=== PATIENT | female | born 1965 | race African-American/Black ===

== ENCOUNTER 2018-03-18 04:20 | Inpatient (IN) | payer OTHER ==
[~2018-03-18] VITALS: Ht 162.6 cm; Wt 83.7 kg
[2018-03-18] MEDS ORDERED: MAGNESIUM 2 G PREMIX 50 ML IV STA (04:32)
[2018-03-18] MEDS ORDERED: METHYLPREDNISOLONE SOD SUCC 125 MG/2 ML VIAL IV STA (04:32)
[2018-03-18] MEDS ORDERED: ALBUTEROL (0.083%) 2.5MG/3ML NEB HHN STA (04:32)
[2018-03-18] MEDS ORDERED: IPRATROPIUM BROMIDE (0.02%) 0.5MG/2.5ML NEB HHN STA (04:32)
[2018-03-18 05:25] LABS: BASOPHILS % 0.5 % (0.0-2.0); EOSINOPHILS % 1.4 % (0.0-5.0); HEMATOCRIT. 43.5 % (36.0-48.0); HEMOGLOBIN. 14.7 g/dL (12.0-16.0); LYMPHOCYTES % 22.2 % (20.0-50.0); MEAN CORPUSCULAR HEMOGLOBIN 28.6 pg (28.0-32.0); MEAN CORPUSCULAR VOLUME 84.7 fL (81.0-99.0); MEAN PLATELET VOLUME 8.4 fl (7.4-10.4); MONOCYTES % 6.4 % (2.0-8.0); NEUTROPHILS % 69.5 % (40.0-76.0); PLATELET 255 x1000/uL (130-400); RED BLOOD CELL COUNT 5.14 mill/uL (4.2-5.4); RED CELL DISTRIBUTION WIDTH 13.6 % (11.6-14.6)
[2018-03-18] MEDS ORDERED: FUROSEMIDE 20MG/2ML VIAL IVP ONE (05:30)
[2018-03-18 05:32] LABS: CHLORIDE 102 mEq/L (98-107)
[2018-03-18 05:36] LABS: PARTIAL THROMBOPLASTIN TIME 30.9 sec (23.4-31.0); PROTHROMBIN TIME 10.5 sec (9.1-11.1)
[2018-03-18 05:40] LABS: ETHANOL BLOOD < 10 mg/dL
[2018-03-18 06:31] LABS: BG BASE EXCESS -0.8 mmol/L (-2.0-2.0); BG BILEVEL POS AIRWAY PRESSURE 15/5; BG CARBOXYHEMOGLOBIN 2.2 % (0.5-1.5); BG DEOXYHEMOGLOBIN 6.6 % (0.0-5.0); BG FRACTION INSPIRED OXYGEN 40; BG HCO3 ACT 24.2 mmol/L (22.0-26.0); BG METHEMOGLOBIN 0.2 % (0.0-1.5); BG OXYGEN SATURATION 93.2 % (92.0-98.5); BG PCO2 41.2 mmHg (35.0-45.0); BG PH 7.386 (7.350-7.450); BG PO2 65.3 mmHg (75.0-100.0); BG SAMPLE SITE RIGHT RADIAL; BG TOTAL HEMOGLOBIN 14.8 g/dL (12.0-18.0); BG VENT MODE MASK - BIPAP
[2018-03-18 09:13] LABS: CLARITY URINE CLEAR (CLEAR); COLOR URINE YELLOW (YELLOW); KETONES URINE NEGATIVE (NEGATIVE); LEUKOCYTE ESTERASE URINE TRACE (NEGATIVE); NITRITE URINE POSITIVE (NEGATIVE); OCCULT BLOOD URINE NEGATIVE (NEGATIVE); PH URINE 5.5 (4.5-8.0); PROTEIN URINE NEGATIVE (NEGATIVE); UROBILINOGEN URINE 0.2 E.U./dL (0.2-1.0)
[2018-03-18 10:51] LABS: *AMPHETAMINES SCREEN URINE PRESUMTIVE POSITIVE (NEGATIVE); *BARBITURATES SCREEN URINE NEGATIVE (NEGATIVE)
[2018-03-18 10:52] LABS: *BENZODIAZEPINES SCREEN URINE NEGATIVE (NEGATIVE); *COCAINE SCREEN URINE PRESUMTIVE POSITIVE (NEGATIVE); CANNABINOID URINE SCREEN NEGATIVE (NEGATIVE); METHADONE URINE SCREEN NEGATIVE (NEGATIVE); OPIATES URINE SCREEN NEGATIVE (NEGATIVE); PHENCYCLIDINE URINE SCREEN NEGATIVE (NEGATIVE)
[2018-03-18 14:00] VITALS: BP 122/79
[2018-03-18 15:19] VITALS: BP 122/79
[2018-03-18 16:00] VITALS: BP 136/76
[2018-03-18] MEDS ORDERED: INFLUENZA VIRUS VACCINE(AFLURIA) 0.5ML SYR IM ONE (17:15)
[2018-03-18] MEDS ORDERED: PNEUMOCOCCAL 23-VAL P-SAC VAC 0.5 ML IM ONE (17:15)
[2018-03-18] MEDS ORDERED: ONDANSETRON HCL 4MG/2ML INJ IV PRN (17:45)
[2018-03-18] MEDS ORDERED: IPRATROPIUM/ALBUTEROL 0.5-3(2.5)MG/3ML NEB INH PRN (17:45)
[2018-03-18] MEDS ORDERED: MAGNESIUM/ALUMINUM HYDROXIDE/SIMETHICONE 30ML UDC PO PRN (17:45)
[2018-03-18] MEDS ORDERED: LORAZEPAM 2MG/ML CPJ IV PRN (17:45)
[2018-03-18 17:57] VITALS: BP 117/77
[2018-03-18] MEDS ORDERED: METHYLPREDNISOLONE SOD SUCC 125 MG/2 ML VIAL IV SCH (18:00)
[2018-03-18] MEDS ORDERED: IPRATROPIUM/ALBUTEROL 0.5-3(2.5)MG/3ML NEB HHN SCH (20:00)
[2018-03-18] MEDS ORDERED: ARIPIPRAZOLE 2MG TABLET PO SCH (21:00)
[2018-03-18] MEDS: LEVOFLOXACIN 500MG PREMIX 100 ML IV SCH (21:03)
[2018-03-18] MEDS: FAMOTIDINE 20MG TABLET PO SCH (21:03)
[2018-03-18] MEDS: SODIUM CHLORIDE 0.9% INJ 3ML FLUSH IVF SCH (21:04)
[2018-03-18] MEDS: GUAIFENESIN 600MG ER TABLET PO SCH (21:07)
[2018-03-18 22:00] VITALS: BP 133/78
[2018-03-19] VITALS (11 sets, daily range): BP systolic 105–151; BP diastolic 53–93
[2018-03-19] MEDS: ARIPIPRAZOLE 2MG TABLET PO SCH ×2 (00:04→09:09)
[2018-03-19] MEDS: ACETAMINOPHEN 325MG TABLET PO PRN ×3 (00:13→18:02)
[2018-03-19] MEDS: IPRATROPIUM/ALBUTEROL 0.5-3(2.5)MG/3ML NEB HHN SCH ×4 (01:59→20:05)
[2018-03-19] MEDS: BUDESONIDE 0.5MG/2ML NEB HHN SCH ×3 (02:00→20:09)
[2018-03-19] MEDS: SODIUM CHLORIDE 0.9% INJ 3ML FLUSH IVF SCH ×3 (06:00→20:10)
[2018-03-19 06:38] LABS: HEMATOCRIT. 41.7 % (36.0-48.0); HEMOGLOBIN. 13.7 g/dL (12.0-16.0); MEAN CORPUSCULAR HEMOGLOBIN 27.9 pg (28.0-32.0); MEAN CORPUSCULAR VOLUME 84.9 fL (81.0-99.0); MEAN PLATELET VOLUME 8.6 fl (7.4-10.4); PLATELET 232 x1000/uL (130-400); RED BLOOD CELL COUNT 4.91 mill/uL (4.2-5.4); RED CELL DISTRIBUTION WIDTH 13.5 % (11.6-14.6)
[2018-03-19 06:48] LABS: CHLORIDE 103 mEq/L (98-107)
[2018-03-19] MEDS: METHYLPREDNISOLONE SOD SUCC 40 MG/ML VIAL IV SCH ×2 (09:04→16:55)
[2018-03-19] MEDS: GUAIFENESIN 600MG ER TABLET PO SCH ×2 (09:05→20:10)
[2018-03-19] MEDS: FAMOTIDINE 20MG TABLET PO SCH ×2 (09:05→20:10)
[2018-03-19] MEDS: NICOTINE 14MG PATCH TD SCH (09:10)
[2018-03-19 16:18] LABS: PLATELET ESTIMATE NORMAL
[2018-03-19] MEDS: GUAIFENESIN 200MG/10ML SUGAR FREE UDC PO PRN (18:02)
[2018-03-19] MEDS: LEVOFLOXACIN 500MG PREMIX 100 ML IV SCH (20:10)
[2018-03-20] VITALS (7 sets, daily range): BP systolic 108–136; BP diastolic 54–78
[2018-03-20] MEDS: IPRATROPIUM/ALBUTEROL 0.5-3(2.5)MG/3ML NEB HHN SCH ×3 (00:14→08:37)
[2018-03-20] MEDS: ACETAMINOPHEN 325MG TABLET PO PRN (03:43)
[2018-03-20] MEDS: SODIUM CHLORIDE 0.9% INJ 3ML FLUSH IVF SCH ×2 (06:00→14:51)
[2018-03-20] MEDS: METHYLPREDNISOLONE SOD SUCC 40 MG/ML VIAL IV SCH (08:35)
[2018-03-20] MEDS: BUDESONIDE 0.5MG/2ML NEB HHN SCH (08:36)
[2018-03-20] MEDS: ARIPIPRAZOLE 2MG TABLET PO SCH (08:40)
[2018-03-20] MEDS: FAMOTIDINE 20MG TABLET PO SCH (08:40)
[2018-03-20] MEDS: GUAIFENESIN 200MG/10ML SUGAR FREE UDC PO PRN (08:40)
[2018-03-20] MEDS: GUAIFENESIN 600MG ER TABLET PO SCH (08:40)
[2018-03-20] MEDS: NICOTINE 14MG PATCH TD SCH (08:42)
[2018-03-20] MEDS ORDERED: ALBU90AE INH (13:34)
[2018-03-20] MEDS ORDERED: LEVO500T2 MT (13:38)
[2018-03-20] MEDS ORDERED: LEVO250T2 MT (13:38)
[2018-03-20] MEDS ORDERED: PRED10TA23 MT (13:39)
[2018-03-20] MEDS ORDERED: ARIP2TAB3 MT (13:41)
[2018-03-20] MEDS ORDERED: GUAI10SY2 MT (13:41)
[2018-03-20] MEDS ORDERED: INFLUENZA VIRUS VACCINE(AFLURIA) 0.5ML SYR IM ONE (15:15)
[2018-03-21] MEDS ORDERED: PREDNISONE 20MG TABLET PO SCH (09:00)
[2018-03-21 14:11] LABS: HIV SCREEN 4G Non Reactive (Non Reactive)
== END 2018-03-20 18:30 | disposition home or self-care (01) | DRG 871 ==
LOC: ER 04:39 → 5EST 05:12 → EDBEDREQ 05:18 → EDBEDREQTM 05:18 → ENRESERV 12:05
PROVIDERS: ADMIT Internal Medicine; ATTEND Internal Medicine
PROC: 5A09357 Assistance with Respiratory Ventilation, Less than 24 Consecutive Hours, Continuous Positive Airway Pressure (ICD-10-PCS; principal; 2018-03-18)
DX: A41.9 Sepsis, unspecified organism (principal); J96.01 Acute respiratory failure with hypoxia; J68.0 Bronchitis and pneumonitis due to chemicals, gases, fumes and vapors; N39.0 Urinary tract infection, site not specified; J06.9 Acute upper respiratory infection, unspecified; F14.10 Cocaine abuse, uncomplicated; T38.0X5A Adverse effect of glucocorticoids and synthetic analogues, initial encounter; J44.9 Chronic obstructive pulmonary disease, unspecified; B96.20 Unspecified Escherichia coli [E. coli] as the cause of diseases classified elsewhere; F31.9 Bipolar disorder, unspecified; F17.210 Nicotine dependence, cigarettes, uncomplicated; I10 Essential (primary) hypertension; J20.9 Acute bronchitis, unspecified; F15.10 Other stimulant abuse, uncomplicated; Z80.0 Family history of malignant neoplasm of digestive organs; Y92.89 Other specified places as the place of occurrence of the external cause; Z71.6 Tobacco abuse counseling
CPT/HCPCS: 36415; 36600; 71045; 78580; 80048; 80305; 82375; 82805; 83605; 83735; 83880; 84484; 87077; 87186; 87389; 87804; 93005; 93306; 93970; 94640; 94660; 96365; 96366; 96375; 97162; 99291; G0482; J1940; J1956; J2060; J2920; J2930; J3475; J7611; J7620; J7626

== ENCOUNTER 2018-03-23 02:08 | Inpatient (IN) | payer OTHER ==
[2018-03-23] VITALS (7 sets, daily range): BP systolic 118–163; BP diastolic 29–117
[~2018-03-23] VITALS: Ht 157.5 cm; Wt 75.4 kg
[~2018-03-23 02:08] MED LIST: ALBU90AE INH; ARIP2TAB3 MT; GUAI10SY2 MT; LEVO250T2 MT; LEVO500T2 MT; PRED10TA23 MT
[2018-03-23 03:13] LABS: BASOPHILS % 0.3 % (0.0-2.0); EOSINOPHILS % 0.4 % (0.0-5.0); HEMATOCRIT. 41.3 % (36.0-48.0); LYMPHOCYTES % 12.2 % (20.0-50.0); MEAN CORPUSCULAR HEMOGLOBIN 28.4 pg (28.0-32.0); MEAN CORPUSCULAR VOLUME 83.4 fL (81.0-99.0); MEAN PLATELET VOLUME 8.2 fl (7.4-10.4); MONOCYTES % 4.5 % (2.0-8.0); NEUTROPHILS % 82.6 % (40.0-76.0); PLATELET 303 x1000/uL (130-400); RED BLOOD CELL COUNT 4.95 mill/uL (4.2-5.4); RED CELL DISTRIBUTION WIDTH 13.6 % (11.6-14.6)
[2018-03-23 03:24] LABS: CHLORIDE 100 mEq/L (98-107)
[2018-03-23] MEDS ORDERED: ACETAMINOPHEN 325MG TABLET PO NR (03:33)
[2018-03-23] MEDS ORDERED: KETOROLAC 15MG/ML VIAL IV NR (03:33)
[2018-03-23] MEDS ORDERED: SODIUM CHLORIDE 0.9% 2,160 ML IV NR (03:45)
[2018-03-23] MEDS ORDERED: SODIUM CHLORIDE 0.9% 1000ML BAG (SEPSIS BOLUS) IV ONE (03:45)
[2018-03-23] MEDS ORDERED: IPRATROPIUM BROMIDE (0.02%) 0.5MG/2.5ML NEB HHN STA (04:29)
[2018-03-23] MEDS ORDERED: METHYLPREDNISOLONE SOD SUCC 125 MG/2 ML VIAL IV STA (04:29)
[2018-03-23] MEDS ORDERED: ALBUTEROL (0.083%) 2.5MG/3ML NEB HHN STA (04:29)
[2018-03-23] MEDS ORDERED: MAGNESIUM 2 G PREMIX 50 ML IV ONE (04:30)
[2018-03-23] MEDS ORDERED: LEVOFLOXACIN 750MG PREMIX 150 ML IV ONE (04:30)
[2018-03-23 09:54] LABS: CLARITY URINE CLEAR (CLEAR); COLOR URINE YELLOW (YELLOW); KETONES URINE NEGATIVE (NEGATIVE); LEUKOCYTE ESTERASE URINE NEGATIVE (NEGATIVE); NITRITE URINE NEGATIVE (NEGATIVE); OCCULT BLOOD URINE NEGATIVE (NEGATIVE); PROTEIN URINE NEGATIVE (NEGATIVE); SPECIFIC GRAVITY URINE 1.004 (1.005-1.030); UROBILINOGEN URINE 0.2 E.U./dL (0.2-1.0)
[2018-03-23] MEDS ORDERED: DOCUSATE SODIUM 100MG CAPSULE PO PRN (11:15)
[2018-03-23] MEDS ORDERED: CLONIDINE 0.1MG TABLET PO PRN (11:15)
[2018-03-23] MEDS ORDERED: ONDANSETRON HCL 4MG/2ML INJ IV PRN (11:15)
[2018-03-23] MEDS ORDERED: NITROGLYCERIN 0.4MG TABLET SL SL PRN (11:15)
[2018-03-23] MEDS ORDERED: IPRATROPIUM/ALBUTEROL 0.5-3(2.5)MG/3ML NEB INH PRN (11:15)
[2018-03-23] MEDS ORDERED: MAGNESIUM/ALUMINUM HYDROXIDE/SIMETHICONE 30ML UDC PO PRN (11:15)
[2018-03-23 11:31] LABS: *AMPHETAMINES SCREEN URINE NEGATIVE (NEGATIVE); *BARBITURATES SCREEN URINE NEGATIVE (NEGATIVE); *BENZODIAZEPINES SCREEN URINE NEGATIVE (NEGATIVE); *COCAINE SCREEN URINE PRESUMTIVE POSITIVE (NEGATIVE); CANNABINOID URINE SCREEN NEGATIVE (NEGATIVE)
[2018-03-23 11:32] LABS: METHADONE URINE SCREEN NEGATIVE (NEGATIVE); OPIATES URINE SCREEN NEGATIVE (NEGATIVE); PHENCYCLIDINE URINE SCREEN NEGATIVE (NEGATIVE)
[2018-03-23] MEDS: ASPIRIN 325MG EC TABLET PO SCH (14:42)
[2018-03-23] MEDS: GUAIFENESIN 200MG/10ML SUGAR FREE UDC PO PRN ×2 (14:42→21:51)
[2018-03-23] MEDS: ACETAMINOPHEN 325MG TABLET PO PRN ×2 (14:42→21:44)
[2018-03-23] MEDS: CEFTRIAXONE 1 G PREMIX 50 ML IV SCH (14:43)
[2018-03-23] MEDS: ENOXAPARIN 40MG/0.4ML SYR SUBCUT SCH (15:33)
[2018-03-23 16:57] LABS: CREATINE KINASE 393 IU/L (26-192); CREATINE KINASE MB FRACTION < 1.0 ng/mL (0.5-3.6)
[2018-03-23] MEDS ORDERED: ASCORBIC ACID 500 MG TABLET PO SCH (21:00)
[2018-03-23] MEDS: FAMOTIDINE 20MG TABLET PO SCH (21:44)
[2018-03-23] MEDS: ASCORBIC ACID 500 MG TABLET PO SCH (21:44)
[2018-03-23] MEDS: ZOLPIDEM TARTRATE 5MG TABLET PO PRN (23:21)
[2018-03-23 23:33] LABS: CREATINE KINASE 287 IU/L (26-192); CREATINE KINASE MB FRACTION < 1.0 ng/mL (0.5-3.6)
[2018-03-24] VITALS (12 sets, daily range): BP systolic 108–154; BP diastolic 31–84
[2018-03-24] MEDS: LEVOFLOXACIN 500MG PREMIX 100 ML IV SCH (07:06)
[2018-03-24] MEDS: ASPIRIN 325MG EC TABLET PO SCH (08:45)
[2018-03-24] MEDS: ZINC SULFATE 220 MG ( 50 ) CAPSULE PO SCH (08:46)
[2018-03-24] MEDS: FAMOTIDINE 20MG TABLET PO SCH ×2 (08:46→21:39)
[2018-03-24] MEDS: ASCORBIC ACID 500 MG TABLET PO SCH ×2 (08:46→21:39)
[2018-03-24] MEDS: ACETAMINOPHEN 325MG TABLET PO PRN (11:16)
[2018-03-24] MEDS: GUAIFENESIN 200MG/10ML SUGAR FREE UDC PO PRN (11:41)
[2018-03-24] MEDS: ENOXAPARIN 40MG/0.4ML SYR SUBCUT SCH (12:17)
[2018-03-24] MEDS: CEFTRIAXONE 1 G PREMIX 50 ML IV SCH (13:35)
[2018-03-24] MEDS ORDERED: VANCOMYCIN 1500MG in DEXTROSE 5% WATER 250ML IV SCH (16:00)
[2018-03-24] MEDS: ACETYLCYSTEINE 100MG/ML 10% VIAL 4ML INH SCH (16:33)
[2018-03-24] MEDS: BUDESONIDE 0.5MG/2ML NEB HHN SCH (16:33)
[2018-03-24] MEDS: IPRATROPIUM/ALBUTEROL 0.5-3(2.5)MG/3ML NEB HHN SCH ×2 (16:33→21:01)
[2018-03-24] MEDS: ZOLPIDEM TARTRATE 5MG TABLET PO PRN (23:35)
[2018-03-25] VITALS (9 sets, daily range): BP systolic 110–144; BP diastolic 53–81
[2018-03-25] MEDS: IPRATROPIUM/ALBUTEROL 0.5-3(2.5)MG/3ML NEB HHN SCH ×6 (00:52→20:30)
[2018-03-25] MEDS: BUDESONIDE 0.5MG/2ML NEB HHN SCH ×3 (00:52→20:31)
[2018-03-25] MEDS: ACETYLCYSTEINE 100MG/ML 10% VIAL 4ML INH SCH ×2 (00:52→12:19)
[2018-03-25] MEDS: GUAIFENESIN 200MG/10ML SUGAR FREE UDC PO PRN (04:04)
[2018-03-25] MEDS: ACETAMINOPHEN 325MG TABLET PO PRN (04:05)
[2018-03-25] MEDS: LEVOFLOXACIN 500MG PREMIX 100 ML IV SCH (05:12)
[2018-03-25] MEDS: VANCOMYCIN 1 G PREMIX 200 ML IV SCH ×2 (06:39→17:23)
[2018-03-25] MEDS: ASPIRIN 325MG EC TABLET PO SCH (08:44)
[2018-03-25] MEDS: FAMOTIDINE 20MG TABLET PO SCH ×2 (08:44→20:16)
[2018-03-25] MEDS: ZINC SULFATE 220 MG ( 50 ) CAPSULE PO SCH (08:44)
[2018-03-25] MEDS: ASCORBIC ACID 500 MG TABLET PO SCH ×2 (08:45→20:17)
[2018-03-25] MEDS: ENOXAPARIN 40MG/0.4ML SYR SUBCUT SCH (11:23)
[2018-03-25] MEDS: CEFTRIAXONE 1 G PREMIX 50 ML IV SCH (13:12)
[2018-03-25] MEDS: KETOROLAC 30MG/ML VIAL IV PRN (17:22)
[2018-03-26] VITALS: BP 113/53
[2018-03-26] MEDS: ZOLPIDEM TARTRATE 5MG TABLET PO PRN (00:02)
[2018-03-26 02:00] VITALS: BP 109/71
[2018-03-26 04:00] VITALS: BP 143/78
[2018-03-26] MEDS: KETOROLAC 30MG/ML VIAL IV PRN (04:10)
[2018-03-26] MEDS: IPRATROPIUM/ALBUTEROL 0.5-3(2.5)MG/3ML NEB HHN SCH ×3 (04:26→09:13)
[2018-03-26] MEDS: LEVOFLOXACIN 500MG PREMIX 100 ML IV SCH (05:31)
[2018-03-26] MEDS: VANCOMYCIN 1 G PREMIX 200 ML IV SCH ×2 (06:00→07:16)
[2018-03-26 06:10] LABS: HEMOGLOBIN. 12.5 g/dL (12.0-16.0); MEAN CORPUSCULAR HEMOGLOBIN 28.5 pg (28.0-32.0); MEAN CORPUSCULAR VOLUME 84.1 fL (81.0-99.0); MEAN PLATELET VOLUME 8.3 fl (7.4-10.4); PLATELET 333 x1000/uL (130-400); RED CELL DISTRIBUTION WIDTH 13.8 % (11.6-14.6)
[2018-03-26 06:21] LABS: CHLORIDE 103 mEq/L (98-107)
[2018-03-26 08:00] VITALS: BP 131/65
[2018-03-26 08:03] LABS: ATYPICAL LYMPHOCYTES 1
[2018-03-26 08:04] LABS: PLATELET ESTIMATE NORMAL
[2018-03-26] MEDS: FAMOTIDINE 20MG TABLET PO SCH (08:46)
[2018-03-26] MEDS: ASPIRIN 325MG EC TABLET PO SCH (08:46)
[2018-03-26] MEDS: ZINC SULFATE 220 MG ( 50 ) CAPSULE PO SCH (08:47)
[2018-03-26] MEDS: ASCORBIC ACID 500 MG TABLET PO SCH (08:47)
[2018-03-26] MEDS: GUAIFENESIN 200MG/10ML SUGAR FREE UDC PO PRN (08:54)
[2018-03-26] MEDS: BUDESONIDE 0.5MG/2ML NEB HHN SCH (09:13)
[2018-03-26 11:37] VITALS: BP 129/71
[2018-03-26 11:55] VITALS: BP 129/71
[2018-03-26] MEDS ORDERED: VANCOMYCIN 1 G PREMIX 200 ML IV SCH (15:00)
== END 2018-03-26 13:19 | disposition home or self-care (01) | DRG 871 ==
LOC: ER 02:08 → 5EST 05:05 → ENRESERV 09:54 → 5EST 17:38
PROVIDERS: ADMIT Internal Medicine; ATTEND Internal Medicine
DX: A40.9 Streptococcal sepsis, unspecified (principal); J96.00 Acute respiratory failure, unspecified whether with hypoxia or hypercapnia; J15.4 Pneumonia due to other streptococci; J68.0 Bronchitis and pneumonitis due to chemicals, gases, fumes and vapors; E44.1 Mild protein-calorie malnutrition; J44.0 Chronic obstructive pulmonary disease with (acute) lower respiratory infection; E66.9 Obesity, unspecified; E83.51 Hypocalcemia; E83.52 Hypercalcemia; F14.10 Cocaine abuse, uncomplicated; F17.210 Nicotine dependence, cigarettes, uncomplicated; F31.9 Bipolar disorder, unspecified; I10 Essential (primary) hypertension; F15.10 Other stimulant abuse, uncomplicated; R74.0 Nonspecific elevation of levels of transaminase and lactic acid dehydrogenase [LDH]; Z68.30 Body mass index [BMI] 30.0-30.9, adult; Z88.1 Allergy status to other antibiotic agents; Z79.899 Other long term (current) drug therapy; Z87.440 Personal history of urinary (tract) infections; Z80.0 Family history of malignant neoplasm of digestive organs; Z71.6 Tobacco abuse counseling; Y92.89 Other specified places as the place of occurrence of the external cause
CPT/HCPCS: 36415; 71045; 80048; 80061; 80202; 80305; 82550; 82553; 83036; 83605; 83880; 84145; 84484; 87077; 87186; 87804; 93005; 93306; 93970; 94640; 96365; 96375; 97162; 97165; 99291; J0696; J1650; J1885; J1956; J2930; J3370; J3475; J7030; J7050; J7060; J7608; J7611; J7620; J7626

== ENCOUNTER 2023-10-13 04:14 | Emergency (ER) | payer OTHER ==
[~2023-10-13] VITALS: Ht 165.1 cm; Wt 65.0 kg
[~2023-10-13 04:14] MED LIST changes: -LEVO250T2 MT; -LEVO500T2 MT; -PRED10TA23 MT
[2023-10-13 04:17] VITALS: O2SAT 98
[2023-10-13] MEDS: LORAZEPAM 1MG TABLET PO ONE (05:13)
[2023-10-13 05:53] VITALS: TEMP 98.4
[2023-10-13] MEDS: ACETAMINOPHEN 325MG TABLET PO ONE (05:53)
[2023-10-13 06:30] VITALS: BP 171/98; PULSE 98; RESP 16
[2023-10-13] MEDS ORDERED: TOPUD PO (09:14)
[2023-10-13] MEDS ORDERED: IBUP-2028 MT (12:19)
== END 2023-10-13 09:33 | disposition home or self-care (01) ==
LOC: ER 04:14
DX: M79.18 Myalgia, other site (principal); F19.10 Other psychoactive substance abuse, uncomplicated; F32.A Depression, unspecified; F20.9 Schizophrenia, unspecified
CPT/HCPCS: 71045; 73620; 99284

== ENCOUNTER 2023-10-13 10:56 | Emergency (ER) | payer OTHER ==
[~2023-10-13] VITALS: Ht 162.6 cm; Wt 63.0 kg
[~2023-10-13 10:56] MED LIST changes: +TOPUD PO
[2023-10-13 11:41] VITALS: BP 138/70; PULSE 87; RESP 16; TEMP 98.5; O2SAT 99
[2023-10-13] MEDS ORDERED: IBUP-2028 MT (12:19)
== END 2023-10-13 12:36 | disposition home or self-care (01) ==
LOC: ER 10:56
DX: M79.672 Pain in left foot (principal); F31.9 Bipolar disorder, unspecified; F20.9 Schizophrenia, unspecified
CPT/HCPCS: 99282

== ENCOUNTER 2024-03-01 06:10 | Inpatient (IN) | payer OTHER ==
[~2024-03-01] VITALS: Ht 162.6 cm; Wt 55.3 kg
[~2024-03-01 06:10] MED LIST changes: +IBUP-2028 MT
[2024-03-01] MEDS: SODIUM CHLORIDE 0.9% 1,000 ML IV ONE (06:15)
[2024-03-01 07:20] LABS: BASOPHILS % 0.6 % (0.0-2.0); EOSINOPHILS % 1.2 % (0.0-5.0); HEMATOCRIT. 37.2 % (36.0-48.0); HEMOGLOBIN. 12.5 g/dL (12.0-16.0); LYMPHOCYTES % 28.6 % (20.0-50.0); MEAN CORPUSCULAR HEMOGLOBIN 29.4 pg (28.0-32.0); MEAN CORPUSCULAR HGB CONC 33.5 g/dL (31.0-37.0); MEAN PLATELET VOLUME 7.5 fl (7.4-10.4); NEUTROPHILS % 63.6 % (40.0-76.0); PLATELET 286 x1000/uL (130-400); RED BLOOD CELL COUNT 4.23 mill/uL (4.2-5.4); WHITE BLOOD COUNT 4.6 x1000/uL (4.5-11.0)
[2024-03-01 07:23] LABS: CHLORIDE 106 mEq/L (98-107); POTASSIUM 3.5 mEq/L (3.5-5.1); SODIUM 139 mEq/L (136-145)
[2024-03-01 07:24] LABS: CARBON DIOXIDE 23 mEq/L (21-32)
[2024-03-01 07:25] LABS: CALCIUM 9.2 mg/dL (8.7-10.4)
[2024-03-01 07:29] LABS: CREATININE 0.7 mg/dL (0.6-1.0); GLUCOSE 110 mg/dL (70-105); UREA NITROGEN BLOOD 13 mg/dL (9-23)
[2024-03-01 07:30] LABS: ETHANOL BLOOD 11 mg/dL (<10); TROPONIN I HIGH SENSITIVITY 7 ng/L (3.0-34)
[2024-03-01 07:31] LABS: INR 0.9; PROTHROMBIN TIME 10.6 sec (9.6-11.0)
[2024-03-01] MEDS ORDERED: AZITHROMYCIN 500MG/250ML 250 ML IV SCH (09:30)
[2024-03-01] MEDS: CEFTRIAXONE 1GM/50ML 50 ML IV ONE (09:30)
[2024-03-01] MEDS ORDERED: AZITHROMYCIN 500 MG in DEXT 5% WATER 250 ML IV SCH (09:30)
[2024-03-01] MEDS ORDERED: DIPHENHYDRAMINE 50MG/ML VIAL IV PRN (12:00)
[2024-03-01] MEDS ORDERED: CLONIDINE 0.1MG TABLET PO PRN (12:00)
[2024-03-01] MEDS ORDERED: IPRATROPIUM/ALBUTEROL 0.5-3(2.5)MG/3ML NEB HHN PRN (12:00)
[2024-03-01] MEDS: ONDANSETRON HCL 4MG/2ML INJ IV PRN (13:20)
[2024-03-01] MEDS: ACETAMINOPHEN 325MG TABLET PO PRN (13:21)
[2024-03-01] MEDS: CEFTRIAXONE 1GM/50ML 50 ML IV SCH (13:27)
[2024-03-01 15:03] VITALS: BP 140/85; PULSE 96; RESP 18; TEMP 36.4736
[2024-03-01 16:00] VITALS: BP 162/75; PULSE 62; RESP 18; TEMP 35.8362; O2SAT 96
[2024-03-02] VITALS: BP 123/68; PULSE 74; RESP 19; TEMP 36.3918; O2SAT 100
[2024-03-02 04:00] VITALS: BP 136/67; PULSE 75; RESP 18; TEMP 36.61404; O2SAT 98
[2024-03-02 08:00] VITALS: BP 98/60; PULSE 61; RESP 18; TEMP 36.78072; O2SAT 100
[2024-03-02 11:12] LABS: BASOPHILS % 0.4 % (0.0-2.0); EOSINOPHILS % 2.4 % (0.0-5.0); HEMATOCRIT. 38.7 % (36.0-48.0); HEMOGLOBIN. 12.5 g/dL (12.0-16.0); LYMPHOCYTES % 37.2 % (20.0-50.0); MEAN CORPUSCULAR HEMOGLOBIN 28.7 pg (28.0-32.0); MEAN CORPUSCULAR HGB CONC 32.3 g/dL (31.0-37.0); MEAN CORPUSCULAR VOLUME 88.8 fL (81.0-99.0); MEAN PLATELET VOLUME 8.2 fl (7.4-10.4); MONOCYTES % 6.3 % (2.0-8.0); NEUTROPHILS % 53.7 % (40.0-76.0); PLATELET 282 x1000/uL (130-400); RED BLOOD CELL COUNT 4.36 mill/uL (4.2-5.4); RED CELL DISTRIBUTION WIDTH 13.2 % (11.6-14.6); WHITE BLOOD COUNT 6.8 x1000/uL (4.5-11.0)
[2024-03-02 11:28] LABS: CARBON DIOXIDE 33 mEq/L (21-32); CHLORIDE 103 mEq/L (98-107); POTASSIUM 3.9 mEq/L (3.5-5.1); SODIUM 139 mEq/L (136-145)
[2024-03-02 11:29] LABS: CALCIUM 9.5 mg/dL (8.7-10.4)
[2024-03-02 11:34] LABS: CREATININE 0.7 mg/dL (0.6-1.0); GLUCOSE 93 mg/dL (70-105); UREA NITROGEN BLOOD 8 mg/dL (9-23)
[2024-03-02 12:00] VITALS: BP_SYST 135; BP_SYST 144; BP_DIAS 57; BP_DIAS 80; PULSE 62; PULSE 68; RESP 18; TEMP 36.3918; TEMP 36.6696; O2SAT 100
[2024-03-02 16:00] VITALS: BP 144/80; PULSE 68; RESP 18; TEMP 36.6696; O2SAT 100
[2024-03-03 08:00] VITALS: BP 134/69; PULSE 55; RESP 16; TEMP 36.33624; O2SAT 100
[2024-03-03 11:33] VITALS: BP 134/69; PULSE 55; TEMP 98.1; O2SAT 100
[2024-03-03 12:00] VITALS: BP 128/71; PULSE 66; RESP 16; TEMP 36.22512; O2SAT 100
== END 2024-03-03 12:58 | disposition home or self-care (01) | DRG 195 ==
LOC: ER 06:24 → 6EST 08:09 → EDBEDREQ 08:15
PROVIDERS: ADMIT Family Medicine Adult Medicine; ATTEND Family Medicine Adult Medicine
DX: J18.9 Pneumonia, unspecified organism (principal); Y90.0 Blood alcohol level of less than 20 mg/100 ml; F10.929 Alcohol use, unspecified with intoxication, unspecified; I10 Essential (primary) hypertension; Z20.822 Contact with and (suspected) exposure to COVID-19; F31.9 Bipolar disorder, unspecified; F20.9 Schizophrenia, unspecified; Z79.899 Other long term (current) drug therapy
CPT/HCPCS: 36415; 74176; 80048; 80320; 84484; 85025; 87426; 93970; 99285; J0456; J0696; J2405; J7030; J7060; G0480